=== PATIENT | male | born 1955 | race American Indian/Alaskan Native ===

== ENCOUNTER 2016-08-22 11:05 | Outpatient (CLI) | payer OTHER ==
--- NOTE | 2016-08-22 11:30 | XRay Report ---
CHEST 2 VIEWS INDICATION: Cough. COMPARISON: None similar at this institution. FINDINGS: PA and lateral chest radiographs demonstrate normal cardiomediastinal silhouette. Clear lungs. Multilevel thoracic spine degenerative spurring. Small left axillary surgical clip anteriorly noted. CONCLUSION: No acute disease in the chest. Thank you for the opportunity to participate in this patient's care.
== END 2016-08-22 11:06 | disposition home or self-care (01) ==
LOC: SPVIMAG 11:05
DX: R05 Cough (principal)
CPT/HCPCS: 71020